=== PATIENT | female | born 1950 | race Caucasian/White ===

== ENCOUNTER 2017-02-20 08:23 | Outpatient (CLI) | payer MEDICARE, BC ==
[2017-02-20 13:03] LABS: #Eosinphils 0.1 thou/uL (0.0-0.7); #Lymphocytes 1.3 thou/uL (1.20-3.40); #Monocytes 0.4 thou/uL (0.11-0.59); #Neutrophils 2.4 thou/uL (1.40-6.50); %Eosinophils 3.3 % (0.0-10.0); %Lymphocytes 29.7 % (21.0-51.0); %Monocytes 9.8 % (0.0-10.0); %Neutrophils 56.2 % (42.0-75.0); Hemoglobin 14.3 g/dL (12.0-16.0); Mean Corpuscular HGB CONC 33.2 g/dL (32.0-36.0); Mean Corpuscular Hemoglobin 28.2 pg (27.0-31.0); Mean Corpuscular Volume 84.8 fl (81.0-99.0); Mean Platelet Volume 6.9 fL (7.4-10.4); Platelet Count 192 thou/uL (130-400); Red Blood Cell (RBC) Count 5.07 mill/uL (4.20-5.40); White Blood Cell (WBC) Count 4.3 thou/uL (4.8-10.8)
[2017-02-20 14:24] LABS: ALT (SGPT) 20 U/L (8-55); AST (SGOT) 18 U/L (5-34); Albumin 4.3 g/dL (3.4-4.8); Alkaline Phosphatase 46 U/L (40-150); Anion Gap 14 mmol/L (10-20); BUN (Urea Nitrogen) 21 mg/dL (9.8-20.1); Bilirubin, Total 0.6 mg/dL (0.2-1.2); Calc. Creatinine Clearance 0 mL/min (70-130); Calcium 9.1 mg/dL (7.8-10.44); Carbon Dioxide 26 mmol/L (23-31); Cardiac Risk 3.7 (Less than 4.5); Chloride 106 mmol/L (98-107); Cholesterol 160 mg/dl (< 200 Desired); Estimated GFR-MDRD 66; Globulin 2.4 g/dL (2.4-3.5); Glucose 95 mg/dL (80-115); HDL Cholesterol 43 mg/dL (>60 Neg Risk); LDL Cholesterol, Calculated 104 mg/dL; Potassium 4.5 mmol/L (3.5-5.1); Protein, Total 6.7 g/dL (6.0-8.3); Sodium 141 mmol/L (136-145); Triglycerides 63 mg/dL (Less than 150)
[2017-02-25 06:15] LABS: Hepatitis C AB By EIA <0.1 s/co ratio (0.0-0.9)
== END 2017-02-20 08:24 ==
LOC: HPCALD 08:23
PROVIDERS: ATTEND Family Medicine
DX: Z00.01 Encounter for general adult medical examination with abnormal findings (principal); Z11.59 Encounter for screening for other viral diseases; Z13.6 Encounter for screening for cardiovascular disorders
CPT/HCPCS: 36415; 80053; 80061; 85025

== ENCOUNTER 2017-03-26 12:59 | Outpatient (CLI) | payer MEDICARE, BC | END 2017-03-26 13:00 | disposition home or self-care (01) | LOC: HPCALD 12:59 | PROVIDERS: ATTEND Physician Assistant | DX: R30.0 Dysuria (principal) | CPT/HCPCS: 87077; 87086 ==

== ENCOUNTER 2017-05-07 10:15 | Outpatient (CLI) | payer MEDICARE, BC | END 2017-05-07 10:16 | disposition home or self-care (01) | LOC: HPCALD 10:15 | PROVIDERS: ATTEND Physician Assistant | DX: R30.0 Dysuria (principal) | CPT/HCPCS: 87077; 87086; 87186 ==

== ENCOUNTER 2017-05-22 11:20 | Outpatient (CLI) | payer MEDICARE, BC | END 2017-05-22 11:21 | disposition home or self-care (01) | LOC: HPCALD 11:20 | PROVIDERS: ATTEND Family Medicine | DX: N39.0 Urinary tract infection, site not specified (principal) | CPT/HCPCS: 87086 ==

== ENCOUNTER 2017-05-27 08:53 | Outpatient (CLI) | payer MEDICARE, BC ==
--- NOTE | 2017-05-27 23:12 | ULT ---
BILATERAL RENAL ULTRASOUND 05/27/17 Ultrasonography of the urinary tract was done for evaluation of recurrent urinary tract infections. There are no prior studies available for comparison. The right kidney measures 11.1 x 4.6 x 4.8 cm. The left kidney measures 10.7 x 5.0 x 4.7 cm. Cortex is ample around each kidney. No renal masses were detected. The renal pelvis of each kidney is rather prominent in size. There might be some calyceal dilation, through not as much as the prominence of the renal pelves. It is difficult on this scan to assess if this is true hydronephrosis or just very prominent extrarenal pelves. Given the history of recurren t urinary tract infections, I feel it might be prudent to do a CT scan to better assess the kidneys, the course of the ureters, etc. I feel this would tell more than this ultrasound does. There were s everal frames through the urinary bladder. No internal masses were seen. The bladder wall seems a li ttle thicker than usual at 5 mm, but it was a concentric finding. Bilateral ureteral jets were prese nt. IMPRESSION: Mild prominence of each renal pelvis such as might be seen in hydronephrosis, but I do not see the a mount of calyceal dilation I would expect for it. CT is recommended to see the entire urinary tract better and whether this just represents anatomical prominence of each renal pelvis versus true hydro nephrosis. Code T POS: HOME
== END 2017-05-27 08:54 | disposition home or self-care (01) ==
LOC: BURULT 08:53
PROVIDERS: ATTEND Family Medicine
DX: N39.0 Urinary tract infection, site not specified (principal)
CPT/HCPCS: 76770

== ENCOUNTER 2017-06-02 11:19 | Outpatient (CLI) | payer MEDICARE, BC | END 2017-06-02 11:20 | disposition home or self-care (01) | LOC: BURLAB 11:19 | PROVIDERS: ATTEND Family Medicine | DX: Z01.812 Encounter for preprocedural laboratory examination (principal) | CPT/HCPCS: 36415; 82565 ==

== ENCOUNTER 2017-06-03 08:43 | Outpatient (CLI) | payer MEDICARE, BC ==
--- NOTE | 2017-06-03 19:54 | CT ---
CT OF THE ABDOMEN AND PELVIS WITH AND WITHOUT CONTRAST AND ADDITIONAL VIEWS 06/03/17 In response to an abnormal ultrasound done recently, A CT was ordered for further investigation. A n oncontrast study was done initially to rule out any calculi. A postcontrast study was then obtained with scans in the portal venous phase followed by a 15 minute delay. There is a mild to moderate degree of right hydronephrosis. The right renal pelvis is rather large, but the right ureter fairly quickly becomes normal in size. Nevertheless, there is good concentratio n of urine in the entire right ureter. At no point does it become tremendously dilated, and in many areas it is quite normal in size. Regarding the left kidney, It has a prominent extrarenal pelvis an d perhaps at most minimal calyceal dilation. The left ureter does not appear enlarged. The kidneys t hemselves show no sign of mass. See comments below. The liver contains no sign of mass and it is normal in size. A few of the intrahepatic ducts are a l ittle more prominent than usual, but this is probably related to the patient's prior cholecystectomy . The spleen, pancreas, adrenal glands and abdominal aorta were unremarkable. There is no sign of bowel distention, inflammatory change or wall thickening. No free air or free fl uid was seen. CT of the pelvis showed no pelvic masses, fluid collections, or other acute changes. On the delayed images, one can see contrast going down nondilated ureters, all the way to the bladder. Given that t he ureters are not tremendously dilated, I doubt that this is a case of reflux. IMPRESSION: Mild to moderate right hydronephrosis with somewhat normal sized ureter. Prominent left renal pelvis and at most minimal left calyceal dilation. My suspicion is that this is her baseline. 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 Given that she is having problems with UTIs, it probably would be prudent for her to see a urol ogist to review these films and determine if anything other than occasional followup need be done. POS: HOME
== END 2017-06-03 08:44 | disposition home or self-care (01) ==
LOC: BURCT 08:43
PROVIDERS: ATTEND Family Medicine
DX: N13.39 Other hydronephrosis (principal)
CPT/HCPCS: 74178